=== PATIENT | female | born 1995 | race Caucasian/White ===

== ENCOUNTER 2021-02-04 16:09 | Emergency (ER) | payer OTHER, SELFPAY ==
--- NOTE | ~2021-02-04 | US_ITS ---
EXAMINATION: US OBSTETRICAL ULTRASOUND CLINICAL INFORMATION: 2 months with vaginal bleeding COMPARISON: 05/13/2018. LMP: 12/03/2020. Gestational age by maternal dates is 9 weeks 0 days. Estimated date of delivery by maternal dates is 09/09/2021. TECHNIQUE: Both transabdominal endovaginal scanning was performed. FINDINGS: There is a single intrauterine gestational sac with visible yolk sac, embryo/fetus, and cardiac activity. There is no significant subchorionic hemorrhage or hematoma. HR: 180 beats per minute. CRL (crown rump length): 2.02 cm (8 weeks 5 days +/- 4 days). KRUPA (estimated date of delivery): 09/11/2021 +/- 4 days. MATERNAL ADNEXA: The right maternal ovary is not seen The left maternal ovary measures 1.6 x 1.0 x 2.5 cm. There is no significant maternal adnexal mass. No maternal pelvic ascites. US/US OB <= 14 weeks fetus IMPRESSION: 1. Single intrauterine gestation with ultrasound gestational age of 8 weeks 5 days +/- 4 days. 2. Estimated date of delivery is 09/11/2021 +/- 4 days. 3. No maternal adnexal mass or pelvic ascites.
[2021-02-04 16:25] VITALS: BP 106/65; PULSE 83; RESP 18; TEMP 36.1; O2SAT 98; BMI 29.1
[2021-02-04 16:59] LABS: MANUAL DIFF FLAG NO
[2021-02-04 17:08] LABS: Appearance Urine CLEAR; Color Urine YELLOW; Glucose Urine UA NEG (NEG); Leukocyte Esterase Urine NEG (NEG); Nitrite Urine NEG (NEG); PH 5.5 (5.0-8.0); Specific Gravity - Urine <= 1.005 (1.005-1.025); UACC Culture Trigger NO; Urine Blood 3+ (NEG); Urine Ketones NEG (NEG); Urine Protein NEG (NEG-TRACE)
[2021-02-04 17:13] LABS: Basophils Percent Auto 0.2 % (0-2); Eosinophils Absolute Auto 0.1 X10*3/uL (0.0-0.4); Eosinophils Percent Auto 0.9 % (0-4); Hematocrit 36.8 % (37.0-47.0); Hemoglobin 11.9 g/dl (12.0-16.0); Imm Gran Abs Auto 0.05 X10*3/uL (0.00-0.03); Imm Gran Pct Auto 0.4 % (0.0-0.4); Lymphocytes Absolute Auto 3.7 X10*3/uL (1.2-4.9); Lymphocytes Percent Auto 29.5 % (20-40); Mean Corpuscular HGB Conc 32.3 g/dl (31.0-35.0); Mean Corpuscular Hemoglobin 27.1 pg (27.0-33.0); Mean Corpuscular Volume 83.8 fL (80.0-98.0); Mean Platelet Volume 9.7 fL (9.4-12.3); Monocytes Absolute Auto 0.7 X10*3/uL (0.1-1.2); Monocytes Percent Auto 5.4 % (2-11); Neutrophils Percent Auto 63.6 % (45-73); Platelet Count 360 X10*3/uL (160-400); Red Blood Count 4.39 X10*6/uL (4.20-5.50); Red Cell Distribution Width 13.9 % (11.0-16.0); White Blood Count 12.7 X10*3/uL (4.8-10.8)
[2021-02-04 17:17] LABS: Alanine Aminotransferase 63 U/L (0-31); Albumin Level 4.3 g/dL (3.5-5.0); Alkaline Phosphatase 54 U/L (39-117); Anion Gap 12 (12-20); Aspartate Amino Transferase 35 U/L (5-31); Bilirubin Total 0.2 mg/dL (0.0-1.0); Blood Urea Nitrogen 8 mg/dL (9-16); Calcium 9.3 mg/dL (8.4-10.2); Carbon Dioxide 24 mmol/L (22-29); Chloride 106 mmol/L (96-108); Creatinine Clr Calc Pharmacy 124.1; Estimated Glomerular Filt Rate > 60; Glucose Random 81 mg/dL (60-115); Potassium 4.4 mmol/L (3.3-5.1); Sodium 138 mmol/L (135-145); Total Protein 7.7 g/dL (6.5-8.0)
[2021-02-04 17:19] LABS: UPreg QC Valid YES; Urine Pregnancy POSITIVE (NEGATIVE)
[2021-02-04 17:40] LABS: Bacteria Urine 1+ /LPF; Squamous Epithelial Cell Urine 2+ /LPF; WBC Urine 0-2 /HPF (0-4)
--- NOTE | 2021-02-04 18:52 | ED.PREGNANCY ---
HPI - General Chief complaint: Vaginal Bleeding Stated complaint: vag bleed - 2mths preg Time Seen by Provider: 02/04/21 16:31 Source: patient Mode of arrival: ambulatory History of Present Illness HPI Narrative: 25-year-old female at 8 weeks gestation LMP 12/03, presenting to the ED complaining of vaginal spotting and brown discharge since this morning with associated lower abdominal pain and nausea. Also reports feeling mildly lightheaded. Denies fever, vomiting, diarrhea, dysuria/hematuria, urinary frequency. 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) Related Data Allergies Allergy/AdvReac Type Severity Reaction Status Date / Time No Known Allergies Allergy Unverified 11/29/19 19:36 [No Known Allergies*] Review of Systems Review of Systems: Constitutional: No Fever, No Chills, No Fatigue, No Malaise ENT/Mouth: o Ear Pain, No Nasal Congestion, No sore throat, No Rhinorrhea, No Swallowing Difficulty Eyes: No Eye Pain, No Swelling, No Redness Cardiovascular: No Chest Pain, No SOB Respiratory: No Cough, No Dyspnea Gastrointestinal: No Nausea, No Vomiting, No Diarrhea, No Constipation, No Abdominal pain Genitourinary: + irregular bleeding, +brown vaginal discharge, No Dysuria, No Urinary Frequency, No Hematuria, No Flank Pain Musculoskeletal: No joint pain, No Myalgias, No Joint Swelling Skin: No Skin Lesions, No rash Neuro: No Weakness, No Numbness, + lightheadedness, No Headache Yes all other systems are reviewed and are negative PMFSH Past Medical History Attestation statement: The following information was validated with the patient. Social History Social History Advance Directives: No Advance Directives Information Provided: No Physical Exam Vital Signs: Vital Signs: Last Vital Signs Temp 97 F 02/04/21 16:25 Pulse 83 02/04/21 16:25 Resp 18 02/04/21 16:25 BP 106/65 02/04/21 16:25 Pulse Ox 98 02/04/21 16:25 Body Mass Index 29.1 Const: General: cooperative, healthy appearing, no acute distress, well developed, alert, awake and Physically active Orientation/consciousness: patient oriented x3 Limitations: no limitations HENMT: Head: Yes normal to inspection Ears: hearing grossly normal bilaterally General nose exam: Normal external nose present Face and sinus: Yes normal facial exam Eyes: General: appearance normal, both eyes and all related structures EOM: EOMs intact bilaterally Neck: Neck: Yes normal visual inspection Resp: Effort & Inspection: normal respiratory effort and no respiratory distress Auscultation: clear to auscultation bilaterally Cardio: Rate: regular rate Heart sounds: S1 normal heart sound present and S2 normal heart sound present GI: Inspection: Yes normal to inspection Palpation (GI): Soft to palpation, Tenderness to palpation present (GI) (lower abdomen) in the LLQ, no guarding and not rigid : Other: Brown discharge noted on pelvic exam, no active bleeding, cleared with Q-tip, no hemorrhage. Mild adnexal tenderness bilaterally. No CMT. Skin: Rashes: no rashes Wounds: no wounds Neuro: General: patient oriented x3 Gait exam (Neuro): Normal gait present Extrem: General: Yes normal to inspection Course Course Course Narrative: -1911--WBC count 12.7 appears chronic. H&H at patient's baseline. AST/ALT mildly elevated. Beta quant 295,824 -UA with 3+ blood/not infected. AB positive > does not need RhoGAM US OB <= 14 weeks fetus IMPRESSION: 1. Single intrauterine gestation with ultrasound gestational age of? 8 weeks 5 days +/- 4 days. 2. Estimated date of delivery is 09/11/2021 +/- 4 days. 3. No maternal adnexal mass or pelvic ascites. 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 Also discussed worrisome signs and symptoms/strict return precautions including persistent/worsening of pain, worsening of bleeding, etc. to return to the ED immediately MDM - OB/Uterine Contractions MDM Narrative Medical decision making narrative: 25-year-old female at 8 weeks gestation LMP 12/03, presenting to the ED complaining of vaginal spotting and brown discharge since this morning with associated lower abdominal pain and nausea. On exam vital signs stable, NAD/nontoxic, abdomen soft with LLQ/lower abdominal tenderness, on pelvic brown discharge noted, no active hemorrhage, mild bilateral adnexal tenderness, no CMT. Exam not consistent with PID. Concern for ectopic vs threatened vs normal . Diverticulitis on differential however lower. Low concern for appendicitis. Rule out UTI Plan: Labs, UA, Ob ultrasound, re-evaluate Medical Records Attestation: I reviewed the patient's medical records. Lab Data Attestation: I reviewed the patient's lab results. Result diagrams: 02/04/21 16:53 02/04/21 16:53 Labs: Lab Results 02/04/21 02/04/21 02/04/21 Range/Units 16:53 16:53 16:53 WBC 12.7 H (4.8-10.8) X10*3/uL RBC 4.39 (4.20-5.50) X10*6/uL Hgb 11.9 L (12.0-16.0) g/dl Hct 36.8 L (37.0-47.0) % MCV 83.8 (80.0-98.0) fL MCH 27.1 (27.0-33.0) pg MCHC 32.3 (31.0-35.0) g/dl RDW 13.9 (11.0-16.0) % Plt Count 360 (160-400) X10*3/uL MPV 9.7 (9.4-12.3) fL Immature Gran % (Auto) 0.4 (0.0-0.4) % Neut % (Auto) 63.6 (45-73) % Lymph % (Auto) 29.5 (20-40) % [place] % (Auto) 5.4 (2-11) % Eos % (Auto) 0.9 (0-4) % Baso % (Auto) 0.2 (0-2) % Lymph # (Auto) 3.7 (1.2-4.9) X10*3/uL [place] # (Auto) 0.7 (0.1-1.2) X10*3/uL Eos # (Auto) 0.1 (0.0-0.4) X10*3/uL Baso # (Auto) 0.0 (0.0-0.2) X10*3/uL Abs Immat Gran (auto) 0.05 H (0.00-0.03) X10*3/uL Absolute Neuts (auto) 8.0 (2.0-8.3) x10*3/uL Absolute Nucleated RBC 0.000 (0.0-0.012) X10*3/uL Nucleated RBC % (auto) 0.0 (0.0-0.2) /100WBC Sodium 138 (135-145) mmol/L Potassium 4.4 (3.3-5.1) mmol/L Chloride 106 (96-108) mmol/L Carbon Dioxide 24 (22-29) mmol/L Anion Gap 12 (12-20) BUN 8 L (9-16) mg/dL Creatinine 0.62 (0.5-1.4) mg/dL Estim Creat Clear Calc 124.1 Estimated GFR > 60 Random Glucose 81 (60-115) mg/dL Calcium 9.3 (8.4-10.2) mg/dL Magnesium 2.0 (1.6-2.6) mg/dL Total Bilirubin 0.2 (0.0-1.0) mg/dL AST 35 H (5-31) U/L ALT 63 H (0-31) U/L Alkaline Phosphatase 54 (39-117) U/L Total Protein 7.7 (6.5-8.0) g/dL Albumin 4.3 (3.5-5.0) g/dL Lipase 60 (8-78) U/L Beta HCG, Quant 147231 mIU/mL Urine Color Urine Appearance Urine pH (5.0-8.0) Ur Specific [place] (1.005-1.025) Urine Protein (NEG-TRACE) MG/DL Urine Glucose (UA) (NEG) MG/DL Urine Ketones (NEG) MG/DL Urine Blood (NEG) Urine Nitrite (NEG) Ur Leukocyte Esterase (NEG) Urine RBC (0) /HPF Urine WBC (0-4) /HPF Ur Squamous Epith Cells /LPF Urine Bacteria /LPF Urine Test (NEGATIVE) Blood Type 02/04/21 02/04/21 02/04/21 Range/Units 16:53 16:53 16:53 WBC (4.8-10.8) X10*3/uL RBC (4.20-5.50) X10*6/uL Hgb (12.0-16.0) g/dl Hct (37.0-47.0) % MCV (80.0-98.0) fL MCH (27.0-33.0) pg MCHC (31.0-35.0) g/dl RDW (11.0-16.0) % Plt Count (160-400) X10*3/uL MPV (9.4-12.3) fL Immature Gran % (Auto) (0.0-0.4) % Neut % (Auto) (45-73) % Lymph % (Auto) (20-40) % [place] % (Auto) (2-11) % Eos % (Auto) (0-4) % Baso % (Auto) (0-2) % Lymph # (Auto) (1.2-4.9) X10*3/uL [place] # (Auto) (0.1-1.2) X10*3/uL Eos # (Auto) (0.0-0.4) X10*3/uL Baso # (Auto) (0.0-0.2) X10*3/uL Abs Immat Gran (auto) (0.00-0.03) X10*3/uL Absolute Neuts (auto) (2.0-8.3) x10*3/uL Absolute Nucleated RBC (0.0-0.012) X10*3/uL Nucleated RBC % (auto) (0.0-0.2) /100WBC Sodium (135-145) mmol/L Potassium (3.3-5.1) mmol/L Chloride (96-108) mmol/L Carbon Dioxide (22-29) mmol/L Anion Gap (12-20) BUN (9-16) mg/dL Creatinine (0.5-1.4) mg/dL Estim Creat Clear Calc Estimated GFR Random Glucose (60-115) mg/dL Calcium (8.4-10.2) mg/dL Magnesium (1.6-2.6) mg/dL Total Bilirubin (0.0-1.0) mg/dL AST (5-31) U/L ALT (0-31) U/L Alkaline Phosphatase (39-117) U/L Total Protein (6.5-8.0) g/dL Albumin (3.5-5.0) g/dL Lipase (8-78) U/L Beta HCG, Quant mIU/mL Urine Color YELLOW Urine Appearance CLEAR Urine pH 5.5 (5.0-8.0) Ur Specific [place] <= 1.005 (1.005-1.025) Urine Protein NEG (NEG-TRACE) MG/DL Urine Glucose (UA) NEG (NEG) MG/DL Urine Ketones NEG (NEG) MG/DL Urine Blood 3+ H (NEG) Urine Nitrite NEG (NEG) Ur Leukocyte Esterase NEG (NEG) Urine RBC 1-4 (0) /HPF Urine WBC 0-2 (0-4) /HPF Ur Squamous Epith Cells 2+ /LPF Urine Bacteria 1+ /LPF Urine Test POSITIVE H (NEGATIVE) Blood Type AB Positive Discharge Plan Discharge Clinical Impression: Vaginal bleeding affecting early Patient Disposition: Home, Self-Care Instructions: Threatened Miscarriage (ED), Abdominal Pain in (ED) Additional Instructions: Your blood work was reassuring today in the emergency department Your ultrasound shows a single intrauterine at 8 weeks 5 days Due to your bleeding and abdominal pain this could be an early miscarriage, if her symptoms persist/worsen, bleeding worsens, abdominal pain worsen/becomes unbearable, you are unable to eat or drink please return to the ED immediately 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
[2021-02-04 19:00] LABS: Lipase 60 U/L (8-78)
[2021-02-05 03:01] LABS: CT PCR NOT DETECTED (Not Detect.); NG PCR NOT DETECTED (Not Detect.)
[2021-02-06 08:52] LABS: BV Int Neg Control Negative (Negative); BV Int Pos Control Positive (Positive)
== END 2021-02-04 21:24 | disposition home or self-care (01) ==
PROVIDERS: Physician Assistant; Emergency Provider Student in an Organized Health Care Education/Training Program
DX: O20.9 Hemorrhage in early pregnancy, unspecified (principal); Z3A.08 8 weeks gestation of pregnancy
CPT/HCPCS: 36415; 76801; 80053; 81001; 81025; 83690; 83735; 84702; 85025; 86900; 86901; 87480; 87491; 87510; 87591; 87660; 99283; 99284

== ENCOUNTER 2023-02-22 11:58 | Emergency (ER) | payer MEDICAID, SELFPAY ==
--- NOTE | ~2023-02-22 | US_ITS ---
EXAMINATION: US ABDOMEN LIMITED CLINICAL INFORMATION: Right upper quadrant abdominal pain. COMPARISON: None available. TECHNIQUE: Real-time imaging of the right upper quadrant abdominal viscera. FINDINGS: PANCREAS: Normal. LIVER: Normal. The liver is normal in size. The liver contour is normal. Parenchymal echogenicity is normal. No focal hepatic lesion. There is no intrahepatic biliary duct dilatation seen. GALLBLADDER: Incompletely distended but otherwise Normal. The gallbladder is physiologically distended without evidence of stones, sludge, polyps, wall thickening or pericholecystic fluid. COMMON BILE DUCT: Normal in caliber measuring 0.4 cm in diameter. RIGHT KIDNEY: Normal. No hydronephrosis. No renal calculi or focal parenchymal lesions. The kidney measures 10.1 cm in maximum dimension. FREE FLUID: None. US/US abdomen limited IMPRESSION: Slightly contracted gallbladder. Otherwise normal right upper quadrant abdomen ultrasound.
--- NOTE | 2023-02-22 12:42 | ED.ABDPAIN ---
HPI - Abdominal Pain General Chief Complaint: Abdominal Pain Stated Complaint: Abd pain, vomiting Related Data Allergies Allergy/AdvReac Type Severity Reaction Status Date / Time No Known Allergies Allergy Verified 02/22/23 12:40 [No Known Allergies*] [facility] Social History Social History Advance Directives: No Advance Directives Information Provided: No Physical Exam ED Vital Signs: BMI result Body Mass Index 30.1 Course Course Course Narrative: RME: 27yo F French speaking presenting to the ED lower abdominal pain, N/V x5 days. reports decreased PO intake. Denies diarrhea, urinary symptoms Abdomen soft with epigastric/RUQ tenderness Labs, UA, ultrasound ordered Full HPI, ROS and PE to be performed by primary ED provider. Medical Decision Making Lab Data 02/22/23 13:51 02/22/23 13:51 Labs: Lab Results 02/22/23 Range/Units 13:51 WBC 10.3 (4.8-10.8) X10*3/uL RBC 4.50 (4.20-5.50) X10*6/uL Hgb 11.0 L (12.0-16.0) g/dl Hct 35.4 L (37.0-47.0) % MCV 78.7 L (80.0-98.0) fL MCH 24.4 L (27.0-33.0) pg MCHC 31.1 (31.0-35.0) g/dl RDW 14.3 (11.0-16.0) % Plt Count 367 (160-400) X10*3/uL MPV 8.9 L (9.4-12.3) fL Immature Gran % (Auto) 0.4 (0.0-0.4) % Neut % (Auto) 68.2 (45-73) % Lymph % (Auto) 23.9 (20-40) % [place] % (Auto) 6.4 (2-11) % Eos % (Auto) 0.8 (0-4) % Baso % (Auto) 0.3 (0-2) % Lymph # (Auto) 2.5 (1.2-4.9) X10*3/uL [place] # (Auto) 0.7 (0.1-1.2) X10*3/uL Eos # (Auto) 0.1 (0.0-0.4) X10*3/uL Baso # (Auto) 0.0 (0.0-0.2) X10*3/uL Abs Immat Gran (auto) 0.04 H (0.00-0.03) X10*3/uL Absolute Neuts (auto) 7.0 (2.0-8.3) x10*3/uL Absolute Nucleated RBC 0.000 (0.0-0.012) X10*3/uL Nucleated RBC % (auto) 0.0 (0.0-0.2) /100WBC Sodium 139 (135-145) mmol/L Potassium 4.3 (3.3-5.1) mmol/L Chloride 106 (96-108) mmol/L Carbon Dioxide 27 (22-29) mmol/L Anion Gap 10 L (12-20) BUN 13 (9-16) mg/dL Creatinine 0.73 (0.5-1.4) mg/dL Estim Creat Clear Calc 101.0 Estimated GFR > 60 Random Glucose 92 (60-115) mg/dL Calcium 9.8 (8.4-10.2) mg/dL Magnesium 2.1 (1.6-2.6) mg/dL Total Bilirubin 0.4 (0.0-1.0) mg/dL Direct Bilirubin 0.2 (0.0-0.5) mg/dL AST 15 (5-31) U/L ALT 8 (0-31) U/L Alkaline Phosphatase 72 (39-117) U/L Total Protein 8.1 H (6.5-8.0) g/dL Albumin 4.4 (3.5-5.0) g/dL Lipase 29 (8-78) U/L Discharge Plan Discharge Clinical Impression: Abdominal pain Patient Disposition: Left W/O Completing Treatment Discharge Date/Time: 02/22/23 19:13
[2023-02-22 12:44] VITALS: BP 107/62; PULSE 93; RESP 17; TEMP 36.6; O2SAT 98; BMI 30.1
[2023-02-22 13:57] LABS: MANUAL DIFF FLAG NO
[2023-02-22 14:06] LABS: Basophils Percent Auto 0.3 % (0-2); Eosinophils Absolute Auto 0.1 X10*3/uL (0.0-0.4); Eosinophils Percent Auto 0.8 % (0-4); Hematocrit 35.4 % (37.0-47.0); Imm Gran Abs Auto 0.04 X10*3/uL (0.00-0.03); Imm Gran Pct Auto 0.4 % (0.0-0.4); Lymphocytes Absolute Auto 2.5 X10*3/uL (1.2-4.9); Lymphocytes Percent Auto 23.9 % (20-40); Mean Corpuscular HGB Conc 31.1 g/dl (31.0-35.0); Mean Corpuscular Hemoglobin 24.4 pg (27.0-33.0); Mean Corpuscular Volume 78.7 fL (80.0-98.0); Mean Platelet Volume 8.9 fL (9.4-12.3); Monocytes Absolute Auto 0.7 X10*3/uL (0.1-1.2); Monocytes Percent Auto 6.4 % (2-11); Neutrophils Percent Auto 68.2 % (45-73); Platelet Count 367 X10*3/uL (160-400); Red Cell Distribution Width 14.3 % (11.0-16.0); White Blood Count 10.3 X10*3/uL (4.8-10.8)
[2023-02-22 14:17] LABS: Alanine Aminotransferase 8 U/L (0-31); Albumin Level 4.4 g/dL (3.5-5.0); Alkaline Phosphatase 72 U/L (39-117); Anion Gap 10 (12-20); Aspartate Amino Transferase 15 U/L (5-31); Bilirubin Direct 0.2 mg/dL (0.0-0.5); Bilirubin Total 0.4 mg/dL (0.0-1.0); Blood Urea Nitrogen 13 mg/dL (9-16); Calcium 9.8 mg/dL (8.4-10.2); Carbon Dioxide 27 mmol/L (22-29); Chloride 106 mmol/L (96-108); Estimated Glomerular Filt Rate > 60; Glucose Random 92 mg/dL (60-115); Lipase 29 U/L (8-78); Magnesium 2.1 mg/dL (1.6-2.6); Potassium 4.3 mmol/L (3.3-5.1); Sodium 139 mmol/L (135-145); Total Protein 8.1 g/dL (6.5-8.0)
== END 2023-02-22 19:13 | disposition left against medical advice (07) ==
LOC: HO.ED 18:59
PROVIDERS: Physician Assistant; Emergency Provider Emergency Medicine
DX: R10.11 Right upper quadrant pain (principal); R10.13 Epigastric pain; Z79.899 Other long term (current) drug therapy
CPT/HCPCS: 36415; 76705; 80048; 80076; 83690; 83735; 85025; 99281; 99283

== ENCOUNTER 2025-03-05 11:18 | Outpatient (AMB) | payer MEDICAID, SELFPAY ==
--- NOTE | 2025-03-05 11:21 | MHC.OFFVIS ---
Vital Signs 03/05/25 11:28 Height 5 ft 4 in Weight 163 lb 2.273 oz BMI 28.0 Intake Visit Reasons: nonintractable headache Allergies No Known Allergies (No Known Allergies*) Allergy (Verified 02/22/23 12:40) HPI Comments Details: The patient is a 29 year old female presenting with headache and vision loss. She began experiencing headaches about a year ago, but on August 12, she developed a severe headache after taking medication for a stomach condition for about two weeks. The headache came on suddenly while she was not doing anything special, and was characterized as a pressure-type pain located behind the eyes and in the back of the head and shoulders. Associated symptoms included the sensation of her ears popping, some numbness, nausea, vomiting, and photophobia. Following the onset of the severe headache, she went to the emergency department at [facility], waited 12 hours, and then returned home. The next morning, she awoke with vision loss in her left eye and went back to the hospital, from where she was transferred to [facility]. The vision loss in her left eye is still present, though it may have partially improved. The patient reports that she continues to have headaches on most days. During her hospitalization at [facility], she underwent a lumbar puncture which reportedly showed high pressure. She denies any history of diabetes or systemic hypertension and denies any recent weight gain. She recently traveled to [facility] for further evaluation where an MRI was performed. Her medication history is significant for a two-week course of tetracycline 500 mg taken three times a day just prior to the onset of her severe headache. She saw an quilting machine helper yesterday. Review of Systems Narrative - Constitutional: Denies weight gain. - Eyes: Reports loss of vision in the left eye. - Reports photophobia. - Reports feeling that her eye is moving in its socket. - Ears/Nose/Throat: Reports a sensation of her ears popping. - Neurological: Reports a history of headaches for the past year, with a recent sudden onset of a severe, pressure-like headache located behind the eyes and in the back of the head and shoulders. - Reports some numbness. - Gastrointestinal: Reports nausea and vomiting. - Gynecological: Denies being and was not taking contraceptive pills at the onset of symptoms. Physical Exam Neuro Other: Mental Status: Alert and oriented to person, place, and time. Normal attention. Normal spontaneous speech, fluency, and comprehension. No obvious issues with mood and memory. Affect is appropriate. Cranial Nerves: CN II: Visual mathis full to confrontation, visual acuity intact. CN III, IV, : Pupils equal, round, reactive to light and accommodation. Extraocular movements are normal. CN V: Facial sensation is normal. CN VII: Facial movements symmetrical. CN VIII: Hearing intact to bedside conversation is normal. CN IX, X: Palate elevates symmetrically. CN XI: Shoulder shrug and head turn symmetrical. CN XII: Tongue midline without atrophy or fasciculations. Fundoscopy: Pale left disc, no obvious edema, mild left afferent pupillary defect. Motor: Bulk and tone normal in all extremities. No significant muscle weakness in arms and legs. No drift. Reflexes: Deep tendon reflexes 2+ and symmetric. Plantar response down-going bilaterally. Coordination: Kvisud-nt-mjha and ylrk-dx-oaze testing normal. No dysmetria. Gait and Station: No obvious gait abnormality. No ataxia or instability. Sensory: Intact to light touch, pinprick, and vibration. Romberg is negative. Extrapyramidal: Full facial expressions and blinking. No rigidity. Movements are appropriate with no tremor or abnormality. Speech: Normal; no dysarthria or tremor. Assessment & Plan Assessment & Plan (1) Optic neuritis, left: Comment: Labs in [place] in September 2024: LIS, Antiphospho lipid IgM/IgG, beta 2 glycoprotein IgM/IgG, SSA, SSB, ESR, AQP-4, Ds DNA, cardiolipin IgM/IgG, MOG: WNL MRI C spine WWO in [facility] in September 2024: WNL (reported) MRI/MRA/MRV brain in [place] in September 2024: (Report: Optic nerves appear tortious, dilated, associated with bilateral lateral transverse sinus stenosis in MRV and partial empty sella. There is associated mild patchy enhancement in the left optic nerve). I reviewed MRI with Dr. Hodges and we do not find any convincing optic nerve issues, or significant issues with sinuses other than right trans sinus being smaller than the left. Anti MOG titer in [place] : 1:32 (+), Anti-AQP-4: neg. 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 Apparently, without any significant past medical history she started having headaches about a year ago. In September, she was having some abdominal problems and was given a course of metronidazole and tetracycline. She had taken tetracycline 100 mg 3 times a day for couple of weeks when she developed a very severe headache. Pain was behind the eye and all around the head neck and back and was described as 10/10. She was nauseous and vomited. She went to [facility] and apparently then to [facility] where she was investigated with imaging and had a lumbar puncture. Apparently her spinal fluid pressure was could high, 2.5?, and she was put on acetazolamide 500 mg 2 times a day. Around same time she went back to [facility] and had multiple investigations including brain and cervical MRI and laboratories. According to the reports from [facility], there was some abnormalities around optic nerves and cerebral venous sinuses and her anti MOG antibody titer was high. She also was seen by an quilting machine helper and later saw Dr. Juan Jose Noguera, a neuroophthalmologist and was diagnosed with left optic atrophy with visual loss. He was considering immunomodulating treatment for anti MOG associated optic neuritis with rituximab. She was still having headaches almost every day and her vision in left eye has not completely normalized. Her records from [facility] were not here. I reviewed her MRI scan from [facility] with neuroradiologist at [facility] and we did not find any significant optic nerve enlargement or abnormalities, or any significant transverse sinus or venous sinus abnormality, other than asymmetric transverse sinuses with left dominant, which was not a significant finding in would not explain her pathology. If high intracranial pressure was found in this otherwise young non obese woman who has been taking tetracycline, I would consider iatrogenic affect before structural. She was advised to avoid taking this type medicine. If that was the reason for high intracranial pressure, no further action at this point might be needed other than ophthalmological follow-up. But, her ophthalmological examination has revealed optic atrophy which is difficult to explain based upon this hypothesis. This would raise possibility of an underlying pathology impacting optic nerves, including anti MOG disease. For now, I have asked them to brain all records from [facility] including CD of her brain imaging. I would see her back in few days and review all that data to make further impression and management decisions Coding Level of Care Code New Pt Level 5 (72392) Diagnoses Optic neuritis, left H46.9 MOG antibody disease G37.81 Time Spent (min) 120 Comment Reviewing records from [facility] and other hospitals
[2025-03-05 11:28] VITALS: BMI 28.0
--- OUTSIDE RECORDS SUMMARY | 2025-03-05 12:41 | XMS_ITS | Clinical Summary ---
Author Organization [facility] Address [address] [place] [address] Care Team Providers Care Instructional Services Librarian Name Role Phone Merced Allison Primary Care Provider [phone] Social History Tobacco Use Types Packs/Day Years Used Date Smoking Tobacco: Never Assessed Comments Unknown Sex and Gender Information Value Date Recorded Sex Assigned at Not on file Legal Sex Female 9:36 AM EST Gender Identity Not on file Sexual Orientation Not on file Plan of Treatment Health Maintenance Due Date Last Done Comments DTaP,Tdap,and Td Vaccines (1 - Tdap) 2014 Hepatitis B Vaccines (1 of 3 - 19+ 3-dose series) 2014 Cervical Cancer Screening: P ap Smear 2016 HPV Vaccines (1 - 3-dose SCD M series) 2022 Depression Screening 03/14/2024 COVID-19 Vaccine (1 - 2024-2 6 season) 2024 Influenza Vaccine (#1) 2024 RSV Immunization Adult Patie nts (1 - 1-dose 75+ series) 2070 HIB Vaccines Aged Out No longer eligi ble based on patient's age to complete this topic Hepatitis A Vaccines Aged Out No long er eligible based on patient's age to complete this topic IPV Vaccines Aged Out No longer eligi ble based on patient's age to complete this topic MMR Vaccines Aged Out No longer eligi ble based on patient's age to complete this topic Meningococcal ACWY Vaccine Aged Out N o longer eligible based on patient's age to complete this topic Meningococcal B Vaccine Aged Out No l onger eligible based on patient's age to complete this topic Pneumococcal Vaccine: Pediat rics (0 to 5 Years) and At-Risk Patients (6 to 49 Years) Aged Out No longer eligible b ased on patient's age to complete this topic RSV Immunization Patients Un tequila 20 months Aged Out No longer eligible b ased on patient's age to complete this topic Varicella Vaccines Aged Out No longer eligible based on patient's age to complete this topic Care Teams Instructional Services Librarian Relationship Specialty Start Date End Date Merced Allison PA [address] [place] [address] PCP - General Internal Medicine 04/05/17
--- OUTSIDE RECORDS SUMMARY | 2025-03-05 12:41 | XMS_ITS | Clinical Summary ---
Author Organization [employer] Address [address] [place] [address] Care Team Providers Care Epic Ambulatory Analyst Name Role Phone Unavailable Primary Care Provider Unavailabl e Social History Tobacco Use Types Packs/Day Years Used Date Smoking Tobacco: Never Assessed Comments Unknown Sex and Gender Information Value Date Recorded Sex Assigned at Not on file Legal Sex Female 9:19 PM EDT Gender Identity Not on file Sexual Orientation Not on file Plan of Treatment Health Maintenance Due Date Last Done Comments Depression Screening 1995 SDOH Screening 1995 Disability Screening 1995 Alcohol/Substance Use Screening 2007 Tobacco Screening 2007 Family Planning (PISQ) 2010 Hepatitis C Screening 2013 Pap Smear 2016 HPV Vaccines (2 - 3-dose series) 06/14/2019 05/17/2019 COVID-19 Vaccine ( season) 2024 Influenza Vaccine (#1) 2024 Diabetes: Hemoglobin A1C 07/30/2025 025, 08/27/2022, 05/17/2019 DTaP/Tdap/Td Vaccines (4 - Td or Tdap) 06/20/2031 06/19/2021, 12/31/2016, 09/21/2016 Zoster Vaccines (1 of 2) 2045 RSV Patients and Patients Aged 60 years or older (1 - 1-dose 75+ series) 2070 HIV Screening Completed 08/23/2017 Hepatitis B Vaccines Completed 01/09/2018, 01/09/2018, 12/31/2016, Additional history exists HIB Vaccines Aged Out No longer eligi [...] patient's age to complete this topic Meningococcal Vaccine Aged Out No roddy alejandro eligible based on patient's age to complete this topic Pneumococcal Vaccine: Pediatrics (0 to 5 Years) and At-Risk Patients (6 to 49) Years Aged Out No longer eligible based on patient's age to complete this topic RSV under 20 months Aged Out No longe r eligible based on patient's age to complete this topic Rotavirus Vaccines Aged Out No longer eligible based on patient's age to complete this topic
== END 2025-03-05 12:14 | disposition home or self-care (01) ==
LOC: HO.HSM 11:19
PROVIDERS: PCP Family Medicine; Visit Provider Psychiatry & Neurology Neurology
DX: H46.9 Unspecified optic neuritis (principal); G37.81 Myelin oligodendrocyte glycoprotein antibody disease
CPT/HCPCS: 99205

== ENCOUNTER → 2025-03-05 11:18 | Outpatient (BNVA) | payer MEDICAID, SELFPAY | PROVIDERS: PCP Family Medicine; Visit Provider Psychiatry & Neurology Neurology | DX: G37.81 Myelin oligodendrocyte glycoprotein antibody disease (principal); H46.9 Unspecified optic neuritis | CPT/HCPCS: 99202 ==

== ENCOUNTER 2025-03-13 12:09 | Outpatient (AMB) | payer MEDICAID, SELFPAY ==
--- NOTE | 2025-03-13 11:58 | A.OFFVIS_ITS ---
Intake Visit Reasons: Record review from [facility] pt bringing Allergies No Known Allergies (No Known Allergies*) Allergy (Verified 02/22/23 12:40) HPI Comments Details: 29 years old woman who apparently had H pylori infection in May of 2024 when she was treated with triple antibiotic therapy. After taking it for few days, which probably included tetracycline, she developed severe headache with blurred vision and stopped taking her medicines. She was admitted at [facility] in August 12 with headache and vision loss. Her initial head CT was negative. Due to concerned about optic neuritis she was treated with 3 day course of IV methylprednisolone 1000 mg a day. MRI of brain, cervical and thoracic spine did not reveal any demyelinating lesion in brain. MRV revealed mild findings suggestive of high intracranial pressure. Apparently she was noted to have papilledema and a lumbar puncture was performed, which revealed opening pressure of 27.5 cm and CSF otherwise was negative. In September, she went to [facility] and had further testing including multiple test for antibodies. Her serum cell based immunofluorescence assay for anti MOG was positive. 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 She continues to complain of headaches and partial loss of vision in left eye. This was the 1st time she had this kind of illness. She was prescribed acetazolamide 250 mg and then 500 mg. She continues to have these symptoms though headache severity has significantly decreased. Physical Exam Neuro Other: Mental Status: Alert and oriented to person, place, and time. Normal attention. Normal spontaneous speech, fluency, and comprehension. No obvious issues with mood and memory. Affect is appropriate. Cranial Nerves: CN II: Visual mathis full to confrontation, visual acuity intact. CN III, IV, : Pupils equal, round, reactive to light and accommodation. Extraocular movements are normal. CN V: Facial sensation is normal. CN VII: Facial movements symmetrical. CN VIII: Hearing intact to bedside conversation is normal. CN IX, X: Palate elevates symmetrically. CN XI: Shoulder shrug and head turn symmetrical. CN XII: Tongue midline without atrophy or fasciculations. Motor: Bulk and tone normal in all extremities. No significant muscle weakness in arms and legs. No drift. Reflexes: Deep tendon reflexes 2+ and symmetric. Plantar response down-going bilaterally. Coordination: Naatih-si-rzzy and ahot-yn-khan testing normal. No dysmetria. Gait and Station: No obvious gait abnormality. No ataxia or instability. Extrapyramidal: Full facial expressions and blinking. No rigidity. Movements are appropriate with no tremor or abnormality. Speech: Normal; no dysarthria or tremor. Assessment & Plan Assessment & Plan (1) MOG antibody disease: Comment: Cell based IF serum assay in [facility] in Oct 2024: Anti MO:32 (+), does not specify IgM or IgG, Anti-AQP-4: neg. Labs in [facility] in September 2024: LIS, Antiphospholipid IgM/IgG, beta 2 glycoprotein IgM/IgG, SSA, SSB, ESR, AQP-4, Ds DNA, cardiolipin IgM/IgG, MOG: WNL Labs at [facility] in August 2024: B12, CMP, LFTs, CBC, LIS, SSA/SSB, NMO/AQP4/MOG on serum, Lyme, RPR, Babesiosis, Ehrlichia, B Burgdrferi PCR, MRI C spine WWO in [facility] in September 2024: WNL (reported) MRI/MRA/MRV brain in [facility] in September 2024: (Report: Optic nerves appear tortious, dilated, associated with bilateral lateral transverse sinus stenosis in MRV and partial empty sella. There is associated mild patchy enhancement in the left optic nerve). I reviewed MRI with Dr. Hodges and we do not find any convincing optic nerve issues, or significant issues with sinuses other than right trans sinus being smaller than the left. 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 So far, she only had one episode b: LP to check her CSF pressure now Orders: Orders FL guided lumbar puncture LP Today G37.81 - Myelin oligodendrocyte glycoprotein antibody disease, H46.9 - Unspecified optic neuritis CSF Cell Count w Diff Today G37.81 - Myelin oligodendrocyte glycoprotein antibody disease, H46.9 - Unspecified optic neuritis CSF Total Protein Today G37.81 - Myelin oligodendrocyte glycoprotein antibody disease, H46.9 - Unspecified optic neuritis MOG IgG Today G37.81 - Myelin oligodendrocyte glycoprotein antibody disease, H46.9 - Unspecified optic neuritis CSF Culture + Gram stain Today G37.81 - Myelin oligodendrocyte glycoprotein antibody disease, H46.9 - Unspecified optic neuritis CSF Glucose Today G37.81 - Myelin oligodendrocyte glycoprotein antibody disease, H46.9 - Unspecified optic neuritis Oligoclonal Banding Today G37.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
--- OUTSIDE RECORDS SUMMARY | 2025-03-13 13:52 | XMS_ITS | Clinical Summary ---
Author Organization [facility] Address [address] [place] [address] Care Team Providers Care Geriatric Nurse Practitioner Name Role Phone Merced Allison Primary Care Provider [phone] Social History Tobacco Use Types Packs/Day Years [...] age to complete this topic Care Teams Geriatric Nurse Practitioner Relationship Specialty Start Date End Date Merced Allison PA [address] [place] [address] PCP - General Internal Medicine 04/05/17
--- OUTSIDE RECORDS SUMMARY | 2025-03-13 13:52 | XMS_ITS | Clinical Summary ---
Author Organization [employer] Address [address] [place] [address] Care Team Providers Care Quality Technician Name Role Phone Unavailable Primary Care Provider [...]
== END 2025-03-13 13:12 | disposition home or self-care (01) ==
LOC: HO.HSM 12:09
PROVIDERS: PCP Family Medicine; Visit Provider Psychiatry & Neurology Neurology
DX: G37.81 Myelin oligodendrocyte glycoprotein antibody disease (principal); H46.9 Unspecified optic neuritis
CPT/HCPCS: 99215; 99417

== ENCOUNTER 2025-03-13 12:09 | Outpatient (REF) | payer MEDICAID, SELFPAY | END 2025-03-13 12:10 | disposition home or self-care (01) | LOC: HO.LAB 12:09 | PROVIDERS: PCP Family Medicine; Visit Provider Psychiatry & Neurology Neurology | DX: G37.81 Myelin oligodendrocyte glycoprotein antibody disease (principal); H46.9 Unspecified optic neuritis | CPT/HCPCS: 36415; 86362 ==